=== PATIENT | male | born 1955 | race Caucasian/White ===

== ENCOUNTER 2025-07-26 10:16 | Observation (INO) | payer MEDICARE ==
[2025-07-25 12:48] LABS: MEAN PLATELET VOLUME 10.2 FL (7.4-10.4); RED CELL DISTRIBUTION WIDTH 15.9 % (11.5-14.5)
[2025-07-25 13:02] LABS: APTT 30 SECONDS (22-32); INR 1.3 INR
[2025-07-25 13:03] LABS: CREATININE 1.25 MG/DL (0.60-1.10); TOTAL CARBON DIOXIDE 31.3 MMOL/L (24-32); eGFR 57 ML/MIN
[~2025-07-26] VITALS: Ht 175.3 cm; Wt 127.5 kg
[2025-07-26] VITALS (12 sets, daily range): BP systolic 140–171; BP diastolic 70–102; PULSE 60–85; RESP 12–21; TEMP 97.2–99.7; O2SAT 94–97
[~2025-07-26 10:16] MED LIST: AMLO10TA PO; CEPH-571 PO; CITA40TA17 PO; FURO-150 PO; HYDR-3972 PO; LACT1CAP65 PO; METO50TA16 PO; POTA-205 PO; SIMV-42 PO; WARF-55 PO
--- NOTE | 2025-07-26 10:46 | ELECTROCARDIOGRAPH REPORT ---
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 Dee Dexter Measurements Intervals [place] Rate: 65 P: 86 W[place]: 156 QRS: 269 QRSD: 194 T: 84 QT: 478 QTc: 498 Interpretive Statements Atrial-ventricular dual-paced rhythm No further analysis attempted due to paced rhythm Electronically Signed On 07-26-2025 16:31:[address] Dee Dexter Please click the below link to view image of tracing.
[2025-07-26] MEDS ORDERED: LISI1TAB53 PO (11:52)
[2025-07-26] MEDS ORDERED: POTA-207 PO (11:52)
[2025-07-26] MEDS ORDERED: METO-411 PO (11:52)
[2025-07-26] MEDS ORDERED: SIMV-42 PO (11:52)
[2025-07-26] MEDS ORDERED: FURO20TA4 PO (11:52)
[2025-07-26] MEDS ORDERED: DILT-96 PO (11:52)
[2025-07-26] MEDS ORDERED: TRAZ-251 PO (11:52)
[2025-07-26] MEDS: sodium bicarbonate 1meq/ml syr 150 ML in dextrose 5%-water 1,000 ML IV ONE (13:22)
[2025-07-26] MEDS ORDERED: LIDOcaine 1% (10mg/ml) 2ml vial ONE (13:53)
[2025-07-26] MEDS ORDERED: iohexol 350 MG/ML 50ML vial IV ONE (13:53)
[2025-07-26] MEDS ORDERED: fentaNYL/PF 50MCG/1 ML 2ML syringe ONE (13:53)
[2025-07-26] MEDS ORDERED: verapamil 2.5 mg/ml inj IV ONE (13:53)
[2025-07-26] MEDS ORDERED: midazolam 1 mg/ML 2ml injection ONE (13:53)
[2025-07-26] MEDS ORDERED: heparin 1,000unit/ml 10ml vial 10 ML ONE (13:53)
[2025-07-26] MEDS ORDERED: nitroGLYCERIN 500mcg/5mL D5W 5 ML IV ONE ×2 (13:54→15:44)
[2025-07-26] MEDS ORDERED: heparin 25,000 UNIT/250ml bag 250 ML IV ONE (15:05)
[2025-07-26 15:09] LABS: ISTAT HGB ART 17.0 g/dl (14.0-17.9); ISTAT Hct ART 50 %PCV (42-52); ISTAT O2 SATURATION ARTERIAL 92 % (95-98); ISTAT SOURCE ART
[2025-07-26] MEDS ORDERED: heparin 1,000 UNITS/NS 500ml 500 ML ONE (15:57)
[2025-07-26] MEDS ORDERED: clopidogrel 300mg tablet ONE (16:13)
[2025-07-26] MEDS ORDERED: ROSU40TA PO (17:19)
[2025-07-26] MEDS ORDERED: CLOP75TA34 PO (17:19)
[2025-07-26] MEDS ORDERED: ASPI-1071 PO (17:19)
[2025-07-26] MEDS: hydrALAZINE 20mg/ml inj. IV PRN (17:34)
--- NOTE | 2025-07-26 20:42 | CARDIOLOGY REPORT ---
DATE OF SERVICE: 07/26/2025 DICTATING PHYSICIAN: PACO Cabello MD CARDIAC CATHETERIZATION DATE OF SERVICE: 07/26/2025 GENDER: Male. AGE: 70 years. HEIGHT: 175 cm. WEIGHT: 128 kg. BODY SURFACE AREA: 2.38 m2. PRIMARY PHYSICIAN: Dr. Modi. ORACLE BPM CONSULTANT: Dr. Cabello. INDICATION: The patient is a 70-year-old male with obesity, sleep apnea, hypertension, hyperlipidemia, paroxysmal atrial fibrillation, sick sinus syndrome, status post permanent pacemaker implantation presenting with progressively increasing shortness of breath. The patient had a myocardial perfusion scan which showed inferolateral reversible defect. After discussing risks, benefits, alternative options, the patient prefers to proceed with definitive coronary angiography. Risks, benefits, and alternative options were discussed and informed consent obtained. DESCRIPTION OF PROCEDURE: The patient underwent left heart catheterization via right radial approach, 6-Bruneian right radial sheath. Post procedure, access site hemostasis was secured with right radial band. The patient tolerated the procedure well. COMPLICATIONS: None. The patient had right heart catheterization in the right antecubital approach, 6-Bruneian sheath. Post-procedure hemostasis was achieved with manual compression. PROCEDURES DONE: * Ultrasound-guided right radial artery visualization and access. * Right heart catheterization. * Left heart catheterization. * LVG. * Coronary cineangiography. * PTCA stenting of the proximal LAD. * Conscious sedation time was 90 minutes. FINDINGS: HEMODYNAMICS: Aortic systolic 164, diastolic 87, mean 111 mmHg. LVEDP of 26 mmHg. No significant gradient across the aortic valve. Right atrial mean 12 mmHg. RV of 53/15 mmHg. PA 51/21 mmHg. Pulmonary capillary wedge pressure at 22 mmHg. Aortic oxygen saturation was 92%. Pulmonary artery oxygen saturation was 63%. Cardiac output with thermodilution technique was 5.7 L/min. Cardiac index was 2.3 L/min/m2. LEFT VENTRICULOGRAM: Overall left ventricular systolic function is 65% with inferobasal hypokinesis/akinesis. CORONARY CINEANGIOGRAPHY: Left main coronary artery is a large caliber vessel With mild luminal irregularities. LAD is a medium caliber vessel arising at the bifurcation of left main coronary artery which courses which courses through anterior interventricular groove and ends by wrapping over he apex. Proximal LAD has 70% narrowing. There is a high diagonal ramus of about 2.5 mm, divides into 3 divisions, mild luminal irregularities. There is a small ramus 2 mm with mild luminal irregularities. Circumflex is a medium caliber vessel which courses through left AV groove, has a long 80% narrowing. It ends in a marginal branch with mild luminal irregularities. Right coronary artery is a large caliber dominant vessel arising from the right aortic sinus, courses through the right AV groove and ends at the posterior crux by dividing into PDA and posterolateral branches. Proximal 2/3rd of the artery appears to be ectatic. There are areas of 2 sequential areas of 70% narrowing in the distal RCA and also 70% narrowing in the posterolateral branch. PDA is at least three mm in diameter with approximately 70% narrowing. Posterolateral branch appears to be small and subtotalied . PTCA STENTING OF THE PROXIMAL LAD, A 6-Bruneian XP LAD 4 gave reasonable support. Lesion was crossed with PT2 Moderate wire. Lesion was angioplastied with 2.25 x 12 mm Trek balloon at 10 atmospheric pressure. The lesion was stented with a 2.75 x 18 mm Resolute Les stent. It was postdilated with a 3 mm NC balloon at 12 atmospheric pressure. While trying to advance the NC balloon f, coronary guidewire backed out . so at that time for better support, LAD . At that time guide was changed to XB lad 4.5 was used, lesion re-crossed. Repeat angioplasty again with 3.0 x 12 mm NC balloon. The proximal two-thirds of the stent was postdilated with a 3.5 mm NC balloon. Post-procedure, obtained good SHAR 3 flow. The patient tolerated the procedure well. RECOMMENDATIONS: Recommend continued aggressive coronary risk factor modification, namely low-fat and low-cholesterol diet, maintaining adequate body weight, keeping LDL less than 70 mg/dL. Regular exercise program. PACO Cabello MD TID: [id number] RECEIPT: [id number] /[facility] cc: Dr. Rajani Madrigal [facility] SYSTEMApril
[2025-07-26] MEDS: potassium Cl 20 mEq SR tablet PO SCH (22:00)
[2025-07-26] MEDS: ACETYLCYSTEINE 200 MG/1 ML 4 ML ORAL SOLUTION PO SCH (22:05)
[2025-07-27] VITALS (8 sets, daily range): BP systolic 147–168; BP diastolic 73–104; PULSE 60–65; RESP 17–20; TEMP 97.7–98.3; O2SAT 95–98
[2025-07-27 06:57] LABS: MEAN PLATELET VOLUME 10.6 FL (7.4-10.4); RED CELL DISTRIBUTION WIDTH 15.7 % (11.5-14.5)
[2025-07-27 07:08] LABS: CREATININE 1.09 MG/DL (0.60-1.10); TOTAL CARBON DIOXIDE 31.5 MMOL/L (24-32); eCRCL 62 ML/MIN; eGFR 67 ML/MIN
[2025-07-27 07:18] LABS: PRO BRAIN NATRIURETIC PEPTIDE 3527 PG/ML (0-125)
[2025-07-27] MEDS ORDERED: midazolam 1 mg/ML 2ml injection ONE (07:43)
[2025-07-27] MEDS ORDERED: verapamil 2.5 mg/ml inj IV ONE (07:43)
[2025-07-27] MEDS ORDERED: fentaNYL/PF 50MCG/1 ML 2ML syringe ONE (07:44)
[2025-07-27] MEDS ORDERED: nitroGLYCERIN 500mcg/5mL D5W 5 ML IV ONE ×2 (07:44→09:21)
[2025-07-27] MEDS ORDERED: heparin 1,000unit/ml 10ml vial 10 ML ONE (07:44)
[2025-07-27 07:45] LABS: CHOL/HDL RATIO 2.8 (0.00-4.99); LDL CHOLESTEROL 77 MG/DL (50-100)
[2025-07-27] MEDS ORDERED: heparin 25,000 UNIT/250ml bag 250 ML IV ONE (08:31)
[2025-07-27] MEDS ORDERED: LIDOcaine 1% (10mg/ml) 2ml vial ONE (08:31)
[2025-07-27 09:14] LABS: ISTAT HGB MIX 17.0 g/dl (14.0-17.9); ISTAT Hct MIX 50 %PCV (42-52); ISTAT O2 SATURATION MIX VENOUS 63 % (60-80); ISTAT SOURCE VEN
[2025-07-27] MEDS ORDERED: ondansetron/PF 4mg/2ml inj ONE (09:24)
[2025-07-27] MEDS ORDERED: metoprolol tartrate 1mg/ml inj IV ONE (09:34)
[2025-07-27] MEDS ORDERED: clopidogrel 300mg tablet ONE (09:34)
--- NOTE | 2025-07-27 10:03 | ELECTROCARDIOGRAPH REPORT ---
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 Dee Dexter Measurements Intervals [place] Rate: 97 P: -72 [place]: 189 QRS: 261 QRSD: 186 T: 113 QT: 472 QTc: 600 Interpretive Statements A-V dual-paced rhythm with some inhibition No further analysis attempted due to paced rhythm Electronically Signed On 07-27-2025 15:05:[address] Dee Dexter Please click the below link to view image of tracing.
[2025-07-27] MEDS: diltiazem CD 120mg capsule (once-daily) PO SCH (11:34)
[2025-07-27] MEDS: SODIUM BICARBONATE 150MEQ IN D5W 1,000 ML IV SCH (11:34)
[2025-07-27] MEDS: metoprolol succinate 25mg (24-HOUR) SR. Tablet PO SCH (11:35)
[2025-07-27] MEDS: potassium Cl 20 mEq SR tablet PO SCH (11:36)
[2025-07-27] MEDS: normal saline 1000ml 1,000 ML IV SCH (11:46)
--- NOTE | 2025-08-09 09:37 | CARDIOLOGY REPORT ---
DATE OF SERVICE: 07/27/2025 DICTATING PHYSICIAN: PACO Cabello MD CARDIAC CATHETERIZATION REPORT DATE OF SERVICE: 07/27/2025 GENDER: Male. AGE: 70 years. HEIGHT: 175 cm. WEIGHT: 127 kg. BODY SURFACE AREA: 2.38 m2. PRIMARY PHYSICIAN: Dr. Rajani Madrigal. ELECTRICIAN RESEARCH: Dr. Cabello. INDICATION: The patient is a 70-year-old male with sleep apnea, hypertension, hyperlipidemia, PAF, sick sinus syndrome, status post PPM with abnormal stress test; however, he underwent coronary angiography on 07/26/2025. At that time, he was found to have proximal LAD, 70% narrowing, which was successfully angioplastied and stented with 2.7 x 18 mm Resolute [place] stent postdilated to 3 mm. The patient today is coming back for stenting of his RCA. Risks, benefits, and alternative options were discussed and informed consent was obtained. The procedure was carried out after adequate heparinization. The patient tolerated the procedure well. No complication. PROCEDURES DONE: * Ultrasound-guided right radial artery visualization access. * PTCA stenting of the posterior descending artery. PTCA stenting of mid right coronary artery. * Conscious sedation time of 75 minutes. FINDINGS: HEMODYNAMICS: Aortic systolic 116 mmHg, diastolic 64 mmHg, and mean 72 mmHg. PTCA STENTING OF THE RCA: After adequate heparinization, PTCA stenting was carried out. A 6-Vietnamese XB RCA guide extra backup gave good support. Lesion crossed with PT2 moderate wire. PDA lesion was angioplastied with 2.5/12 mm NC trek balloon at 12 atmospheric pressure. Distal RCA and mid RCA lesions were angioplastied with 2.5/12 mm NC trek balloon at 16 atmospheric pressure. The distal RCA and PDA lesion was stented with 3/30 mm resolute heather stent and. The mid lesion was stented with 4/30 mm Resolute [place] stent overlapping the PDA stent at 12 atmospheric pressure,. Proximal portion of the distal stent and mid RCA stent were post dilated with 4.5/12 mm Nima trek noncompliant balloon at 12 atmospheric pressure. Post-procedure, 0%, SHAR 3 flow. The patient tolerated the procedure well with no complication. IMPRESSION: A 70-year-old male with mid right coronary artery and distal right coronary artery/posterior descending artery with 70% narrowing. Was angioplastied and stented with 3/38 mm Galt stent. . Mid RCA lesion stented with 4/30 mm resolute heather stent overlapping the stent in PDA. The proximal portion of the Distal stent in PDA and mid RCA stent were postdilated with 4.5 mm noncompliant nima trek balloon achieving 0%, SHAR 3 flow. The patient tolerated the procedure well. Complications none. RECOMMENDATIONS: Recommend continued aggressive coronary risk factor modification namely low fat, low cholesterol diet, maintaining ideal body weight, keeping LDL less than 70 mg, and regular exercise program. . PACO Cabello MD TID: [id number] RECEIPT: [id number] /[facility]ULIET cc: Rajani Madrigal MD MTDD
== END 2025-07-27 16:42 | disposition home or self-care (01) ==
LOC: SSTAY O 10:16 → PCU 3S 17:09
PROVIDERS: ADMIT Internal Medicine Cardiovascular Disease; ATTEND Internal Medicine Cardiovascular Disease
DX: I48.0 Paroxysmal atrial fibrillation (principal); R94.39 Abnormal result of other cardiovascular function study; I11.0 Hypertensive heart disease with heart failure; I50.30 Unspecified diastolic (congestive) heart failure; R53.83 Other fatigue; R60.0 Localized edema; E78.5 Hyperlipidemia, unspecified; G47.30 Sleep apnea, unspecified; R94.31 Abnormal electrocardiogram [ECG] [EKG]; Z79.899 Other long term (current) drug therapy; Z98.890 Other specified postprocedural states
CPT/HCPCS: 80048; 80053; 80061; 82803; 83880; 85014; 85347; 85610; 85730; 93005; 93460; 96365; 96366; 96375; C1725; C1751; C1769; C1874; C1894; C9600; C9601; G0378; J1938; J3490; Q0163; Q9967; 36415; 76937; 85025; 87081; 96376; 99152; 99153; A6223; A6253; A6258; A6449; J0360; J1200; J1644; J2003; J2250; J2405; J3010; J7030; J7070

== ENCOUNTER 2025-07-31 06:09 | Day surgery (SDC) | payer MEDICARE ==
[2025-07-31] VITALS (12 sets, daily range): BP systolic 127–148; BP diastolic 68–87; PULSE 60–72; RESP 16; TEMP 98; O2SAT 92–96
[~2025-07-31] VITALS: Ht 175.3 cm; Wt 121.3 kg
[~2025-07-31 06:09] MED LIST changes: -AMLO10TA PO; +ASPI-1071 PO; -CEPH-571 PO; +CLOP75TA34 PO; +DILT-96 PO; -FURO-150 PO; +FURO20TA4 PO; -HYDR-3972 PO; -LACT1CAP65 PO; +LISI1TAB53 PO; +METO-411 PO; -METO50TA16 PO; -POTA-205 PO; +POTA-207 PO; +ROSU40TA PO; +TRAZ-251 PO
--- NOTE | 2025-07-31 06:52 | ELECTROCARDIOGRAPH REPORT ---
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 Dee Dexter Measurements Intervals [place] Rate: 60 P: 0 ID: [id number] QRS: -89 QRSD: 179 T: 90 QT: 493 QTc: 493 Interpretive Statements A-V dual-paced rhythm with some inhibition No further analysis attempted due to paced rhythm Electronically Signed On 07-31-2025 7:01:[address] Dee Dexter Please click the below link to view image of tracing.
[2025-07-31] MEDS ORDERED: APIX5TAB3 PO (06:53)
[2025-07-31] MEDS ORDERED: ASPI-611 PO (06:53)
[2025-07-31] MEDS ORDERED: ROSU40TA PO (06:53)
[2025-07-31] MEDS ORDERED: CLOP-32 PO (06:53)
[2025-07-31 07:22] LABS: MEAN PLATELET VOLUME 10.4 FL (7.4-10.4); RED CELL DISTRIBUTION WIDTH 16.3 % (11.5-14.5)
[2025-07-31 07:23] LABS: CREATININE 1.51 MG/DL (0.60-1.10); TOTAL CARBON DIOXIDE 32.9 MMOL/L (24-32); eCRCL 45 ML/MIN; eGFR 46 ML/MIN
[2025-07-31 07:27] LABS: APTT 26 SECONDS (22-32); INR 1.2 INR
[2025-07-31] MEDS: sodium bicarbonate 1meq/ml syr 150 ML in dextrose 5%-water 1,000 ML IV ONE (08:16)
[2025-07-31] MEDS ORDERED: heparin 1,000unit/ml 10ml vial 10 ML ONE (08:24)
[2025-07-31] MEDS ORDERED: verapamil 2.5 mg/ml inj IV ONE (08:24)
[2025-07-31] MEDS ORDERED: LIDOcaine 1% (10mg/ml) 2ml vial ONE (08:24)
[2025-07-31] MEDS ORDERED: nitroGLYCERIN 500mcg/5mL D5W 5 ML IV ONE ×2 (08:27→09:30)
[2025-07-31] MEDS ORDERED: midazolam 1 mg/ML 2ml injection ONE (08:36)
[2025-07-31] MEDS ORDERED: fentaNYL/PF 50MCG/1 ML 2ML syringe ONE (08:36)
[2025-07-31] MEDS ORDERED: heparin 25,000 UNIT/250ml bag 250 ML IV ONE (09:06)
[2025-07-31] MEDS ORDERED: clopidogrel 300mg tablet ONE (09:54)
[2025-07-31] MEDS ORDERED: HYDROcodone/acetaminophen 10/325mg tab PO PRN (10:25)
[2025-07-31] MEDS ORDERED: HYDROcodone/acetaminophen 5mg/325mg tablet PO PRN (10:25)
--- NOTE | 2025-07-31 10:27 | ELECTROCARDIOGRAPH REPORT ---
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 PACO Dickinson Measurements Intervals [place] Rate: 60 P: 66 [place]: 70 QRS: -82 QRSD: 192 T: 82 QT: 503 QTc: 503 Interpretive Statements Atrial-ventricular dual-paced rhythm No further analysis attempted due to paced rhythm Electronically Signed On 07-31-2025 11:02:[address] PACO Dickinson Please click the below link to view image of tracing.
[2025-07-31] MEDS ORDERED: sodium bicarbonate 1meq/ml syr 150 ML in dextrose 5%-water 1,000 ML IV ONE (10:30)
[2025-07-31] MEDS: ACETYLCYSTEINE 200 MG/1 ML 4 ML ORAL SOLUTION PO ONE (14:55)
--- NOTE | 2025-08-01 07:34 | CARDIOLOGY REPORT ---
DATE OF SERVICE: 07/31/2025 DICTATING PHYSICIAN: PACO Cabello MD CORONARY INTERVENTION REPORT DATE OF PROCEDURE: 07/31/2025 GENDER: Male. AGE: 70 years. HEIGHT: 175 cm. WEIGHT: 121 kg. BODY SURFACE AREA: 2.33 m2. INDICATION: The patient is a 70-year-old obese male with sleep apnea, hypertension, hyperlipidemia, PAF, sick sinus syndrome status post PPM, who had an abnormal stress test. He underwent coronary angiography on 07/26/2025. At that time, he was found to have left main normal; proximal LAD 80% narrowing, successfully angioplastied and stented with 2.75 x 18 Resolute [place] stent, postdilated to 3 mm. He also had RCA narrowing in the mid-distal portion. They were stented to two Resolute stents, now he has been brought back to stent his circumflex, which has a long 80% moderately calcified lesion. Risks, benefits, and alternative options discussed. Informed consent obtained. DESCRIPTION OF PROCEDURES: The patient underwent coronary intervention from right radial approach, 6-Emirati right radial sheath. Postprocedure access site hemostasis was secured with right radial band. The patient tolerated the procedure well with no complication. PROCEDURES DONE: * Left heart catheterization. * PT angioplasty of the circumflex artery. * Stenting of the circumflex artery. * Left heart catheterization. * Conscious sedation 60 minutes. * Procedure carried out under conscious sedation, local anesthesia and adequate heparinization. * A 6-Emirati XB LAD 4.5 gave good support. Lesion crossed with PT2 moderate wire. * In view of the moderate amount of calcification, the patient's lesion was aggressively angioplastied with 2.5/12 NC Nima Trek balloon all the way up to 18 atmospheric pressure. It was stented with a 2.5/38 Resolute Les stent deployed at 14 atmospheric pressure. The proximal lesion close to the ostium was stented with 3.5/18 Resolute [place] stent overlapping the prior stent. The proximal three-fourth of the entire stented segment was postdilated with a 3.5-mm balloon with 0% SHAR 3 flow. The patient tolerated the procedure well. COMPLICATIONS: None. IMPRESSION: A 70-year-old male with a long 80% moderately calcified circumflex lesion from the proximal to distal circumflex, successfully angioplastied and stented with 2.5/38 and two 3.5/18 Resolute Les stent. Entire stented segment was postdilated to 3.5 mm. Post-procedure, 0% SHAR 3 flow. RECOMMENDATIONS: The patient was extensively counseled on coronary risk factor modification, namely low-fat, low-cholesterol diet, maintaining ideal body weight,, regular exercise program. PACO Cabello MD TID: [id number] RECEIPT: [id number] [facility] cc: Hamida Madrigal [facility]
== END 2025-07-31 16:20 | disposition home or self-care (01) ==
LOC: SSTAY O 06:09
PROVIDERS: ATTEND Internal Medicine Cardiovascular Disease
DX: I25.10 Atherosclerotic heart disease of native coronary artery without angina pectoris (principal); I48.0 Paroxysmal atrial fibrillation; E66.9 Obesity, unspecified; E78.5 Hyperlipidemia, unspecified; G47.30 Sleep apnea, unspecified; I49.5 Sick sinus syndrome; I13.0 Hypertensive heart and chronic kidney disease with heart failure and stage 1 through stage 4 chronic kidney disease, or unspecified chronic kidney disease; I50.30 Unspecified diastolic (congestive) heart failure; N18.9 Chronic kidney disease, unspecified; R94.39 Abnormal result of other cardiovascular function study; Z95.0 Presence of cardiac pacemaker; Z95.5 Presence of coronary angioplasty implant and graft; Z82.49 Family history of ischemic heart disease and other diseases of the circulatory system; Z82.3 Family history of stroke; Z80.9 Family history of malignant neoplasm, unspecified; Z79.01 Long term (current) use of anticoagulants
CPT/HCPCS: 36415; 80048; 85025; 85347; 85610; 85730; 93005; 99152; 99153; A6258; A6402; C1725; C1751; C1769; C1874; C1894; C9600; J1644; J2003; J2250; J3010; J3490; J7030; J7070; Q0163; Q9967; Z7610; 76937; 93452